=== PATIENT | male | born 1965 | race Caucasian/White ===

== ENCOUNTER 2018-10-19 06:48 | Emergency (ER) | payer BC ==
[2018-10-19] MEDS: LIDOCAINE 1%/EPI (MDV) 50 ML INJ INJ (08:00)
[2018-10-19] MEDS: HYDROCODONE/APAP (5/325) TAB PO (08:09)
[2018-10-19] MEDS: KETOROLAC 60 MG INJ IM (08:09)
[2018-10-19] MEDS: CEPHALEXIN 500 MG CAP PO (08:31)
[2018-10-19] MEDS: TRIMETHOPRIM/SULFAMETHOX (DS) TAB PO (08:31)
[2018-10-19] MEDS: LIDOCAINE 4% CR TOP (08:31)
== END 2018-10-19 10:48 | disposition home or self-care (01) ==
LOC: FTE 06:48
DX: K64.5 Perianal venous thrombosis (principal); I10 Essential (primary) hypertension
CPT/HCPCS: 46050; 96372; 99284-25

== ENCOUNTER 2018-10-23 09:52 | Emergency (ER) | payer BC | END 2018-10-23 11:50 | disposition home or self-care (01) | LOC: FTE 09:52 | DX: K64.4 Residual hemorrhoidal skin tags (principal); I10 Essential (primary) hypertension | CPT/HCPCS: 99282 ==